=== PATIENT | female | born 1980 | race Hispanic/Latino ===

== ENCOUNTER 2020-12-11 02:31 | Emergency (ER) | payer SELFPAY ==
[~2020-12-11] VITALS: Ht 157.5 cm; Wt 65.8 kg
[2020-12-11] MEDS ORDERED: SODIUM CHLORIDE 0.9% 1000ML 1,000 ML IV ONE (02:45)
[2020-12-11 03:04] LABS: BASOPHILS % 0.3 % (0.0-1.0); EOSINOPHILS % 0.3 % (0.0-6.0); HEMATOCRIT 38.9 % (34.2-44.1); HEMOGLOBIN 12.9 g/dL (12.0-16.0); LYMPHOCYTES # (AUTO) 1.3 (1.0-3.2); LYMPHOCYTES % 10.1 % (18.0-39.1); MEAN CORPUSCULAR HEMOGLOBIN 33.4 pg (28-32); MEAN CORPUSCULAR HGB CONC 33.2 g/dL (31-35); MEAN CORPUSCULAR VOLUME 100.8 fL (81-99); MONOCYTES # (AUTO) 0.6 (0.2-0.8); MONOCYTES % 4.5 % (4.4-11.3); NEUTROPHILS # (AUTO) 10.4 (2.1-6.9); NEUTROPHILS % 84.2 % (38.7-80.0); PLATELET COUNT 269 x10e3/uL (140-360); RED BLOOD COUNT 3.86 x10e6/uL (3.6-5.1); RED CELL DISTRIBUTION WIDTH 13.4 % (11.7-14.4)
[2020-12-11] MEDS ORDERED: SODIUM CHLORIDE 0.9% 1000ML 1,000 ML ONE (03:16)
[2020-12-11] MEDS ORDERED: PROMETHAZINE HCL (IM) 25 MG/ML VIAL IM ONE (03:16)
[2020-12-11 03:22] LABS: ALBUMIN 3.8 g/dL (3.5-5.0); ALBUMIN/GLOBULIN RATIO 1.1 (0.8-2.0); ANION GAP 17.2 mmol/L (8-16); CALCIUM 8.5 mg/dL (8.4-10.2); CREATININE, SERUM 0.8 mg/dL (0.57-1.11); POTASSIUM 4.2 mmol/L (3.5-5.1)
[2020-12-11 03:23] LABS: CLARITY,URINE CLEAR (CLEAR); COLOR,URINE YELLOW (YELLOW); KETONES,URINE 1+ (NEGATIVE); LEUKOCYTE ESTERASE ,URINE NEGATIVE (NEGATIVE); NITRITE,URINE NEGATIVE (NEGATIVE); PROTEIN,URINE DIPSTICK 1+ (NEGATIVE)
[2020-12-11 03:23] LABS: VALPROIC ACID 59 ug/mL (50-100)
[2020-12-11 03:24] LABS: AMPHETAMINES SCREEN,URINE NEGATIVE (NEGATIVE); BENZODIAZEPINES SCREEN,URINE NEGATIVE (NEGATIVE); PHENCYCLIDINE SCREEN,URINE NEGATIVE (NEGATIVE); URINE UROBILINOGEN 0.2 mg/dL (0.2 - 1)
[2020-12-11 03:28] LABS: CREATINE KINASE MB 0.8 ng/mL (0-5.0)
[2020-12-11 03:31] LABS: BACTERIA,URINE MANY /HPF; EPITHELIAL CELLS,URINE FEW /LPF
[2020-12-11] MEDS ORDERED: CEFTRIAXONE 1 GM in SODIUM CHLORIDE 0.9% 50ML 50 ML IV ONE (03:45)
[2020-12-11] MEDS ORDERED: LORAZEPAM INJ 2 MG/ML VIAL IV PRN (03:45)
[2020-12-11] MEDS ORDERED: LORAZEPAM INJ 2 MG/ML VIAL ONE (03:48)
[2020-12-11] MEDS ORDERED: CEFTRIAXONE 1 GM VIAL ONE (04:10)
[2020-12-11 04:56] VITALS: BP 101/70
[2020-12-11] MEDS ORDERED: DEPAKOTE ER 500MG TAB(ONCE DAILY) PO SCH (09:00)
== END 2020-12-11 04:58 | disposition home or self-care (01) ==
LOC: ER 02:49
DX: G40.909 Epilepsy, unspecified, not intractable, without status epilepticus (principal)
CPT/HCPCS: 36415; 70450; 80053; 80164; 80307; 80320; 81001; 81025; 82550; 82553; 82948; 84484; 85025; 93005; 99284; J0696; J7030; J2060; J2550

== ENCOUNTER 2020-12-11 14:42 | Inpatient (IN) | payer SELFPAY ==
[~2020-12-11] VITALS: Ht 157.5 cm; Wt 62.1 kg
[2020-12-11] MEDS ORDERED: LEVETIRACETAM 500 MG/5 ML VIAL IV ONE ×2 (14:55→14:58)
[2020-12-11] MEDS ORDERED: LORAZEPAM INJ 2 MG/ML VIAL ONE ×2 (14:55→17:21)
[2020-12-11] MEDS ORDERED: SODIUM CHLORIDE 0.9% 500ML 500 ML ONE (14:55)
[2020-12-11] MEDS ORDERED: SODIUM CHLORIDE 0.9% 1000ML 1,000 ML IV STA ×2 (14:59→16:31)
[2020-12-11] MEDS ORDERED: LORAZEPAM INJ 2 MG/ML VIAL IV ONE (15:00)
[2020-12-11] MEDS ORDERED: LEVETIRACETAM 500MG/5ML VIAL 1,000 MG in SODIUM CHLORIDE 0.9% 100 ML 100 ML IV SCH (15:00)
[2020-12-11] MEDS ORDERED: ACETAMINOPHEN 650 MG SUPP PR ONE ×2 (15:00→15:06)
[2020-12-11 15:16] LABS: BASOPHILS % 0.2 % (0.0-1.0); HEMATOCRIT 39.7 % (34.2-44.1); HEMOGLOBIN 13.2 g/dL (12.0-16.0); LYMPHOCYTES # (AUTO) 0.6 (1.0-3.2); LYMPHOCYTES % 3.4 % (18.0-39.1); MEAN CORPUSCULAR HEMOGLOBIN 33.3 pg (28-32); MEAN CORPUSCULAR HGB CONC 33.2 g/dL (31-35); MEAN CORPUSCULAR VOLUME 100.3 fL (81-99); MONOCYTES # (AUTO) 0.3 (0.2-0.8); MONOCYTES % 2.1 % (4.4-11.3); NEUTROPHILS # (AUTO) 15.5 (2.1-6.9); NEUTROPHILS % 93.8 % (38.7-80.0); PLATELET COUNT 258 x10e3/uL (140-360); RED BLOOD COUNT 3.96 x10e6/uL (3.6-5.1); RED CELL DISTRIBUTION WIDTH 13.3 % (11.7-14.4)
[2020-12-11] MEDS ORDERED: FOSPHENYTOIN 50 MG/ML VIAL IV STA (15:17)
[2020-12-11 15:21] LABS: AMPHETAMINES SCREEN,URINE NEGATIVE (NEGATIVE); BENZODIAZEPINES SCREEN,URINE NEGATIVE (NEGATIVE); PHENCYCLIDINE SCREEN,URINE NEGATIVE (NEGATIVE)
[2020-12-11 15:22] LABS: CLARITY,URINE SL CLOUDY (CLEAR); COLOR,URINE YELLOW (YELLOW); LEUKOCYTE ESTERASE ,URINE NEGATIVE (NEGATIVE); NITRITE,URINE NEGATIVE (NEGATIVE); PROTEIN,URINE DIPSTICK NEGATIVE (NEGATIVE)
[2020-12-11 15:23] LABS: KETONES,URINE 2+ (NEGATIVE); URINE UROBILINOGEN 0.2 mg/dL (0.2 - 1)
[2020-12-11] MEDS ORDERED: DEXTROSE 50% SYRINGE 50 ML IV STA (15:23)
[2020-12-11] MEDS ORDERED: CEFEPIME 2 GM in SODIUM CHLORIDE 0.9% 100 ML IV ONE (15:30)
[2020-12-11] MEDS ORDERED: DEXTROSE 50% SYRINGE 50 ML IV ONE (15:33)
[2020-12-11 15:36] LABS: BACTERIA,URINE RARE /HPF; EPITHELIAL CELLS,URINE MODERATE /LPF
[2020-12-11 15:44] LABS: ALBUMIN 3.9 g/dL (3.5-5.0); ALBUMIN/GLOBULIN RATIO 1.1 (0.8-2.0); ANION GAP 14.8 mmol/L (8-16); CALCIUM 7.8 mg/dL (8.4-10.2); CREATININE, SERUM 0.65 mg/dL (0.57-1.11); MAGNESIUM 1.9 MG/DL (1.3-2.1); POTASSIUM 3.8 mmol/L (3.5-5.1)
[2020-12-11] MEDS ORDERED: FOSPHENYTOIN 1,000 MG in SODIUM CHLORIDE 0.9% 100 ML IV ONE (16:00)
[2020-12-11 16:04] LABS: CREATINE KINASE MB 4.4 ng/mL (0-5.0); THYROID STIMULATING HORMONE 0.335 uIU/mL (0.350-4.940)
[2020-12-11 16:33] LABS: SALICYLATE < 5.0 mg/dL (0-30)
[2020-12-11] MEDS ORDERED: SODIUM CHLORIDE 0.9% 1000ML 1,000 ML ONE (16:44)
[2020-12-11] MEDS ORDERED: ONDANSETRON HCL INJ 2MG/ML 2ML 2 MG/ML VIAL IV PRN (17:00)
[2020-12-11 17:08] LABS: ABG HCO3 17 mmol/L (22-26); ABG PCO2 29 mmHg (35-45); ABG PH 7.39 (7.35-7.45); ABG PO2 166 mmHg (80-105); ABG TCO2 18
[2020-12-11] MEDS: SODIUM CHLORIDE 0.9% 1000ML 1,000 ML IV SCH (19:30)
[2020-12-11 23:06] VITALS: BP 98/61
[2020-12-11 23:20] VITALS: BP 98/61
[2020-12-11] MEDS: FOSPHENYTOIN 50 MG/ML VIAL IV SCH (23:38)
[2020-12-12] VITALS (17 sets, daily range): BP systolic 95–119; BP diastolic 59–88
[2020-12-12 03:17] LABS: CREATINE KINASE MB 3.6 ng/mL (0-5.0)
[2020-12-12] MEDS: SODIUM CHLORIDE 0.9% 1000ML 1,000 ML IV SCH (03:40)
[2020-12-12 04:54] LABS: BASOPHILS % 0.4 % (0.0-1.0); EOSINOPHILS % 0.1 % (0.0-6.0); HEMATOCRIT 35.6 % (34.2-44.1); HEMOGLOBIN 11.9 g/dL (12.0-16.0); LYMPHOCYTES # (AUTO) 2.3 (1.0-3.2); LYMPHOCYTES % 20.6 % (18.0-39.1); MEAN CORPUSCULAR HEMOGLOBIN 33.2 pg (28-32); MEAN CORPUSCULAR HGB CONC 33.4 g/dL (31-35); MEAN CORPUSCULAR VOLUME 99.4 fL (81-99); MONOCYTES # (AUTO) 0.6 (0.2-0.8); MONOCYTES % 5.4 % (4.4-11.3); PLATELET COUNT 251 x10e3/uL (140-360); RED BLOOD COUNT 3.58 x10e6/uL (3.6-5.1); RED CELL DISTRIBUTION WIDTH 13.3 % (11.7-14.4)
[2020-12-12 05:21] LABS: PHENYTOIN (DILANTIN) 19.63 ug/mL (10-20)
[2020-12-12 05:25] LABS: ALBUMIN 3.3 g/dL (3.5-5.0); ALBUMIN/GLOBULIN RATIO 1.1 (0.8-2.0); ANION GAP 10.5 mmol/L (8-16); CALCIUM 7.9 mg/dL (8.4-10.2); CREATININE, SERUM 0.57 mg/dL (0.57-1.11); POTASSIUM 3.5 mmol/L (3.5-5.1)
[2020-12-12 06:07] LABS: CREATINE KINASE MB 1.4 ng/mL (0-5.0)
[2020-12-12] MEDS: FOSPHENYTOIN 50 MG/ML VIAL IV SCH ×3 (07:03→22:20)
[2020-12-12] MEDS ORDERED: ZOLPIDEM TARTRATE 5 MG TAB PO PRN (21:00)
[2020-12-13] VITALS (22 sets, daily range): BP systolic 98–123; BP diastolic 56–77
[2020-12-13 04:54] LABS: BASOPHILS % 0.3 % (0.0-1.0); EOSINOPHILS # (AUTO) 0.1 (0.0-0.4); EOSINOPHILS % 0.9 % (0.0-6.0); HEMATOCRIT 37.5 % (34.2-44.1); HEMOGLOBIN 12.5 g/dL (12.0-16.0); LYMPHOCYTES # (AUTO) 1.6 (1.0-3.2); LYMPHOCYTES % 24.9 % (18.0-39.1); MEAN CORPUSCULAR HEMOGLOBIN 33.1 pg (28-32); MEAN CORPUSCULAR HGB CONC 33.3 g/dL (31-35); MEAN CORPUSCULAR VOLUME 99.2 fL (81-99); MONOCYTES # (AUTO) 0.5 (0.2-0.8); MONOCYTES % 7.7 % (4.4-11.3); NEUTROPHILS # (AUTO) 4.3 (2.1-6.9); NEUTROPHILS % 65.9 % (38.7-80.0); PLATELET COUNT 249 x10e3/uL (140-360); RED BLOOD COUNT 3.78 x10e6/uL (3.6-5.1); RED CELL DISTRIBUTION WIDTH 13.1 % (11.7-14.4)
[2020-12-13 05:20] LABS: ALBUMIN 3.3 g/dL (3.5-5.0); ANION GAP 11.4 mmol/L (8-16); CALCIUM 8.5 mg/dL (8.4-10.2); CREATININE, SERUM 0.58 mg/dL (0.57-1.11); POTASSIUM 3.4 mmol/L (3.5-5.1)
[2020-12-13] MEDS: FOSPHENYTOIN 50 MG/ML VIAL IV SCH ×3 (06:22→22:30)
[2020-12-13] MEDS ORDERED: POTASSIUM CHLORIDE 10MEQ EA PO ONE (13:45)
[2020-12-14] VITALS: BP 120/71
[2020-12-14 04:00] VITALS: BP 99/73
[2020-12-14] MEDS: FOSPHENYTOIN 50 MG/ML VIAL IV SCH (06:00)
[2020-12-14 07:11] VITALS: BP_SYST 124; BP_SYST 99; BP_DIAS 73; BP_DIAS 79
[2020-12-14 08:01] VITALS: BP 117/67
== END 2020-12-14 09:18 | disposition home or self-care (01) | DRG 100 ==
LOC: ER 14:58 → ERHOLD 17:04 → ICU 22:59
PROVIDERS: ADMIT Family Medicine; ATTEND Family Medicine
DX: G40.901 Epilepsy, unspecified, not intractable, with status epilepticus (principal); G93.41 Metabolic encephalopathy; E87.6 Hypokalemia; Z20.822 Contact with and (suspected) exposure to COVID-19
CPT/HCPCS: 36415; 36600; 70450; 71045; 80053; 80185; 80307; 80320; 80329; 81001; 82542; 82550; 82553; 82805; 82948; 83605; 83735; 83874; 84146; 84443; 84484; 85025; 87040; 93005; 95812; 99285; J0692; J2060; J7030; J7040; J7050; J7799; Q2009; U0002